=== PATIENT | male | born 1980 | race Caucasian/White ===

== ENCOUNTER 2017-03-17 23:49 | Emergency (ER) | payer MEDICAID ==
[~2017-03-17] VITALS: Ht 167.6 cm; Wt 86.2 kg
[~2017-03-17 23:49] MED LIST: CIPRO 500MG TA500 MG PO; ENDOCET 325 MG-1 TAB PO; ETODOLAC400 MG PO; FLEXERIL10 MG PO; INDOCIN25 MG PO; LIDODERM5% TP; LODINE200 MG PO; PREDNISONE 10MG10 MG PO; TRAMADOL 50MG T50 MG PO
--- OUTSIDE RECORDS SUMMARY | 2017-03-18 00:02 | External Medical Summary Rpt | CCD ---
Author Author , PREMA LLOYD Address Unknown Phone [email or web address] Purpose Continuity of Care Document - through 2016
--- OUTSIDE RECORDS SUMMARY | 2017-03-18 00:02 | External Medical Summary Rpt | CCD ---
Author Author , PREMA LLOYD Address Unknown Phone [email or web address] Purpose Continuity of Care Document - through 2016
--- OUTSIDE RECORDS SUMMARY | 2017-03-18 00:03 | External Medical Summary Rpt | CCD ---
Author Author [employer] Organization [employer] Address Unknown Phone Unavailable Purpose Continuity of Care Document - through 2016
--- OUTSIDE RECORDS SUMMARY | 2017-03-18 00:03 | External Medical Summary Rpt ---
Author Author PREMA Dubose, [employer] Organization [employer] Address Unknown Phone Unavailable
--- OUTSIDE RECORDS SUMMARY | 2017-03-18 00:03 | External Medical Summary Rpt | CCD ---
Demographics Preferred Language Citizen Of [place] Marital Status Unknown Tenriism Affiliation Unknown Race Unknown Ethnic Group Unknown Author Author , PREMA LLOYD Address Unknown Phone Immunization No patient found.
--- OUTSIDE RECORDS SUMMARY | 2017-03-18 00:03 | External Medical Summary Rpt | CCD ---
Demographics Preferred Language Croatian Marital Status Unknown Congregational Affiliation Unknown Race Unknown Ethnic Group Unknown Author Author , PREMA LLOYD Address Unknown Phone Immunization No patient found.
--- NOTE | 2017-03-18 00:37 | Emergency Room Report ---
History of Present Illness Time Seen by [id number] Presenting Problem in Triage Pt arrived:Walked Presenting Problem:C/O PAIN TO LEFT RIB CAGE. 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 N Clinical Suspician of Infection? N Mental Status: 1 - Regular (Normal Baseline) Sepsis Risk:Low Sepsis Risk Have you (or family members/close friends) recently traveled outside the [place]? N If Yes, where/when: Have you had exposure to infectious disease within the past month? N TB? Other? Specify: Source patient, RN notes reviewed, family, old records Exam Limitations no limitations Comment pt with acute lt rib pain after bending over Cardiac Chest Pain Chest pain indicative of cardiac No Timing/Duration this evening Severity moderate ALLERGIES Coded Allergies: No Known Allergies (03/17/17) Home Medications Reported Medications No Known Home Medications History Medical History General CAD? No Angina: No [place]: No Hypertension? No Hyperlipidemia? No CHF? No DVT? No PE? No COPD? No Asthma? No Anemia? No GERD? No Gastric ulcers? No GI Bleed? No Hernia? Yes Thyroid Problems? No Hypothyroidism? No CVA? No Seizures? No Diabetes? No Insulin Dependent: No Insulin Pump: No Home FSBS? No Renal Insuffiency? No End Stage Renal Disease? No UTI? No Stones? Yes BPH? No GB Disease: No Nephritic Syndrome? No Asplenia? No Hepatitis? No Sickle Cell Disease? No Arthritis? No Migraines? No Cataracts? No Glaucoma? No MRSA? No HIV? No TB? No Anxiety? No Depression? No Cancer? No More? No Immunization Hx DT/Tetanus Unknown Flu Pneumonia Never Had Surgical Hx Previous Surgery?Y LEG FX UMBILICAL HERNIA REPAIR VASECTOMY Family History Family Hx Diabetes No CAD Yes Hypertension Yes Hyperlipidemia No Cancer No TB No Social History Smoking Hx Smoker: Never Smoker Tobacco: Yes Type Snuff Packs/day < 1 Pack Alcohol Alcohol: No Drugs none Review of Systems All Other Systems Reviewed and Negative Constitutional denies fever Eyes denies drainage ENT denies: ear pain, epistaxis, throat pain. Respiratory denies cough, denies shortness of breath, denies wheezing Cardiovascular see HPI, chest pain, denies syncope Gastrointestinal denies abdominal pain, denies vomiting Genitourinary denies: dysuria, frequency, hesitancy, hematuria. Musculoskeletal denies back pain, denies joint pain, denies joint swelling, denies neck pain Skin denies rash Psychiatric/Neurological denies headache, denies seizure Physical Exam Vital Signs Vital Signs Date Time Temp Pulse Resp B/P Pulse O2 O2 Flow FiO2 Ox Delivery Rate 03/18 0044 24 03/17 2355 98.9 74 22 142/105 96 - WBC >12,000 or <4,000 or 10% bands? 2 or more SIRS Criteria Met? B/P:144/77 MAP:117 Creatinine >2.0? UA output<0.5ml/kg/hr for 2 hrs? Platelet count >100,000? Lactate >2.0mmol/1? INR >1.2 or PTT > than 60 sec? Evidence of Organ Dysfunction? Provider documented clinical suspician of infection? N Sepsis Criteria Count: 1 Sepsis Risk: Low Sepsis Risk General Appearance no apparent distress Eye Exam - bilateral eye PERRL, bilateral eye EOMI Ear, Nose, Throat normal ENT inspection Neck supple Respiratory Status Yes: tender on palpation. No: respiratory distress. Lung Sounds bilateral: lungs clear. 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 No Results/Orders Laboratory Tests 03/18/17 0000: Sodium 140, Potassium 3.6, Chloride 103, Carbon Dioxide 29, BUN 16, Creatinine 1.2, Estimated Creat Clear 104, Estimated GFR (MDRD) 69, Glucose 102, Calcium 9.3, Total Bilirubin 0.5, AST 17, ALT 22, Alkaline Phosphatase 96, Creatine Kinase 109, CK-MB (CK-2) Rel Index 0.8, CK and CKMB Interp 0.9, Troponin I < 0.02, Total Protein 7.7, Albumin 4.2, Globulin 3.5 H, Albumin/Globulin Ratio 1.2, WBC 7.5, RBC 4.85, Hgb 14.1, Hct 41.0 L, MCV 84.7, RDW 13.2, Plt Count 233 , MPV 8.1, Gran % 56.0, Gran # 4.2, Lymphocytes % 36.1, Monocytes % 6.3, Eosinophils % 1.3, Basophils % 0.3, Lymphocytes # 2.7, Monocytes # 0.5, Eosinophils # 0.1, Basophils # 0.0, PUBS MCHC 34.5, MCH 29.2 Current Medication Orders Sig/[place] Start time Last Medication Dose Route Stop Time Status Admin Ketorolac 30 MG ONCE ONE 03/185 DC 03/18 Tromethamine IV 03/18 46 0044 Sodium Chloride 10 ML PRN PRN 03/185 AC IV 03/19 0039 Ketorolac 0 .STK-MED ONE 03/181 DC Tromethamine .ROUTE Sodium Chloride 10 ML PRN PRN 03/18 0030 AC IV 03/19 0030 Orders Procedure Date/time Status DIET-NOTHING BY MOUTH 03/[address] CHEST W/O CONTRAST 03/[address] SCAN REQ 03/18 0056 Complete COMPLETE METABOLIC PANEL 03/18 0040 Complete CBC WITH AUTO DIFF 03/18 0040 Complete CARDIAC ENZYMES 03/18 0040 Complete IV SALINE LOCK 03/18 0030 Active CHEST(2 VIEWS-NOT PORTABLE) 03/18 0000 Active XRAY/CT/US XRAY/CT/US 1 XRAY chest XR interpretation by reviewed by me Xray Results normal/NAD XRAY/CT/US [address] interpretation by discussed w/radiologist Time results known: 0151 CT Results normal/NAD Departure Departure Time of Disposition 0146 Disposition DC Home or Self Care(routine) Clinical Impression Primary Impression: Rib pain on left side Condition STABLE Referrals EDMOND VALERIO APRN (Family) Patient Instructions DI for Atypical Chest Pain Additional Instructions use meds and see pcp for follow up Discharge Counseling Counseled pt/family regarding diagnosis, test results, medications/RX, follow up needs Prescriptions Current Visit Scripts No Known Home Medications ED Critical Care Critical Care No at 0152
[2017-03-18 00:45] LABS: HEMOGLOBIN 14.1 g/dL (14.1-18.0); LYMPH # 2.7 K/mm3 (0.7-4.5); LYMPH % 36.1 % (10-50)
[2017-03-18 01:10] LABS: BUN 16 mg/dL (7-18)
[2017-03-18 01:24] LABS: GFR (ESTIMATED) 69 ML/MIN (>60)
[2017-03-18 02:36] VITALS: BP 131/90
--- NOTE | 2017-03-18 05:33 | RADIOLOGY REPORT PS360 ---
CHEST(2 VIEWS-NOT PORTABLE) HISTORY: Left-sided chest pain lt side pain ORDERING PHYSICIAN: Matthieu Baker MD PATIENT AGE: 36 years COMPARISON: None available FINDINGS: The cardiomediastinal silhouette and pulmonary vascularity are within normal limits. The lungs are clear without infiltrates, suspicious nodules, or pleural effusions. No acute bony abnormalities. IMPRESSION: Negative chest, no acute finding
--- NOTE | 2017-03-18 05:59 | RADIOLOGY REPORT PS360 ---
CT CHEST W/O CONTRAST HISTORY: Left-sided chest pain, rib pain after bending over to pick something up LEFT SIDE PAIN ORDERING PHYSICIAN: Matthieu Baker MD PATIENT AGE: 36 years TECHNIQUE: Helical acquisition obtained following the intravenous administration of 75 mL of Isovue 370 .. Axial, sagittal, and coronal reformatted images are generated and reviewed. COMPARISON: None FINDINGS: No mediastinal or hilar mass or adenopathy is evident. There are a few calcified hilar lymph nodes. The heart size is normal. There is some minimal thickening of the pericardium anteriorly nonspecific. No large pericardial effusion evident. There are few calcified granulomas in the lungs. No suspicious masses. No lobar consolidation or collapse. No evidence of pneumothorax. No displaced rib fracture. No destructive bony process or pleural thickening. Images of the upper abdomen demonstrates a 2.7 cm right renal cyst with some calcification posteriorly. There are bilateral nonobstructing renal calculi measuring up to 5 mm in the lower pole on the right and 4 mm in the lower pole on the left. No hydronephrosis. IMPRESSION: 1. No acute findings. 2. Nonobstructing bilateral renal calculi. 3. Complex right renal cyst which may be better evaluated with ultrasound if clinically warranted
== END 2017-03-18 02:38 | disposition home or self-care (01) ==
LOC: ER 23:49
PROVIDERS: Emergency Medicine
DX: R07.89 Other chest pain (principal); R06.02 Shortness of breath; F17.290 Nicotine dependence, other tobacco product, uncomplicated
CPT/HCPCS: J2405